=== PATIENT | female | born 1970 | race Caucasian/White ===

== ENCOUNTER 2016-11-29 21:36 | Emergency (ER) | payer BC ==
[2016-11-29 21:54] VITALS: BMI 57.4
--- NOTE | 2016-11-29 23:00 | EDPRACDOC ---
- General Information Chief Complaint: Headache Stated Complaint: HEADACHE NO VOMITING Time Seen by Provider: 11/29/16 22:30 Information Source: Patient Mode Of Arrival: Car Home Medications: Home Medications Ibuprofen 600 mg PO Q6 PRN 10/27/15 Losartan/Hydrochlorothiazide [Losartan-Hctz 100-25 mg Tab] 1 tab PO DAILY Aspirin/Calcium Carbonate/Mag [Aspirin Buffered 325 mg Tab] 650 mg PO QAM Cholecalciferol (Vitamin D3) [Vitamin D3] 5,000 unit PO DAILY 11/29/16 Allergies/Adverse Reactions: Allergies Allergy/AdvReac Type Severity Reaction Status Date / Time No Known Allergies Allergy Verified 10/27/15 00:22 - History of Present Illness Onset: today HPI: PAIN BEHIND RIGHT EAR SHOOTS UP RIGHT SIDE OF HEAD., ASSOCIATED WITH TINGLING OF RIGHT FACE. HAS BEEN GOING ON FOR SEVERAL DAYS, WORSE TODAY. PAIN 9/10. PHOTOPHOBIA RIGHT EYE. PT TOOK ASPIRIN AND MOTRIN TODAY WITHOUT RELIEF. PT DID TAKE HER BLOOD PRESSURE MEDICINE TODAY WELL. ED Past Medical History - Patient Medical History Cardiac History: Reports: Hypertension Respiratory History: Reports: Pneumonia GI/ History: Denies: Urinary Tract Infection Psychological History: Denies: Depression Systemic History: Reports: Anemia (PRIOR TO HYSTERECTOMY). Denies: Cancer Surgical History: Reports: Hysterectomy, Other (HERNIA REPAIR) - Family Medical History Reports: Hypertension (FATHER), Diabetes (GRANDFATHER), Cancer (GRANDMOTHER), Cardiac Disorders (FATHER) - Social Medical History Smoking Status: Never smoker EDM Review of Systems - Review of Systems ROS Negative Except as Marked: Yes All systems reviewed and were negative except as marked Constitutional: No Symptoms Reported Eyes: Other (TROUBLE FOCUSING RIGHT EYE) Ears: No Symptoms Reported, Other (FEELS WEIRD RIGHT EAR) Respiratory: No Symptoms Reported Cardiovascular: No Symptoms Reported Gastrointestinal: Other (HEARTBURN) Neurological: No Symptoms Reported Musculoskeletal: No Symptoms Reported - Physical Exam Constitutional: Alert (Awake), No apparent distress Oriented to: Time, Person, Place Last recorded Vital Signs: Last Vital Signs Temp 98.0 F 11/29/16 21:51 Pulse 101 11/29/16 21:51 Resp 20 11/29/16 21:51 BP 210/93 H 11/29/16 21:51 Pulse Ox 96 11/29/16 21:51 Oxygen Pulse Oxygen Saturation 96 O2 Device Room Air Oxygen Flow Rate Fraction of Inspired Oxygen ( FIO2) - HEENT Head: Normal ( normocephalic), Other (POINT TENDERNESS ON MASTOID BEHIND RIGHT EAR. NO PALPABLE LYMPHADENOPATHY. NO BOGGINESS.) Eye Exam: Normal (PERRL, EOMI, Sclera white) Oropharynx: Normal (Pharynx:Moist without exudate,Gums-no swelling) Tympanic Membrane: Normal ENT EAC: Normal TMJ: Normal Nose: No Symptoms Reported (septum midline) Neck: Normal (FROM, trachea at midline) - Respiratory/Cardiovascular Respiratory: Normal - CTA (BBS clear to auscultation without adventitious sounds ) Cardiovascular: Normal (RRR without murmur, gallop or rub) - GI Auscultation: Normal (NABS) Palpation: Normal (Soft,No rebound or guarding, non distended) Tenderness: Non tender Patterson's Sign: Negative - Musculoskeletal Back: Normal (Non-Tender) Extremities: Normal (Normal tone, Pulses 2+ No cyanosis or edema, FROM) - Integumentary Skin: Normal, Warm, Dry Lymphatics: Normal (no adenopathy) - Neurologic Memory Impaired: Normal Motor Function: Normal (Normal tone, Pulses 2+ No cyanosis or edema, FROM) Cranial Nerve: Normal (CN II-X11 intact sensation, strength 5/5) Cerebellar: Normal Mood Description: Normal Perception: Normal - Results 11/29/16 23:50 11/29/16 23:50 - EKG EKG #1 EKG Time: 23:14 -: Yes EKG interpreted by me Rate: bpm: 94 [place]: Normal Rhythm: NSR Block: None Hypertrophy: None ST: Normal Comments: NORMAL EKG Decision Time to Discharge: 01:22 - Departure Yes I personally saw and evaluated the patient. Disposition: Home Condition: Stable Final Diagnosis: Headache Instructions: Acute Headache (ED) Education/Counseling Given To: Patient Education/Counseling Given Regarding: Diagnosis Referrals: Jocelin Walton MD [Primary Care Provider] - One Week
[2016-11-29] MEDS ORDERED: METOCLOPRAMIDE 10 MG/2 ML VIAL IM ONE (23:05)
[2016-11-29] MEDS ORDERED: DEXAMETHASONE PF 10 MG/1 ML VIAL IM ONE (23:05)
[2016-11-29] MEDS ORDERED: DIPHENHYDRAMINE 50 MG/ML VIAL IM ONE (23:18)
--- NOTE | 2016-11-29 23:27 | DIRPT ---
CLINICAL DATA: 46-year-old female with heartburn EXAM: PORTABLE CHEST 1 VIEW COMPARISON: Chest CT dated 02/18/2015 FINDINGS: The heart size and mediastinal contours are within normal limits. Both lungs are clear. The visualized skeletal structures are unremarkable. IMPRESSION: No active disease. Electronically Signed By: Terrance Jackson M.D. On: 11/29/2016 23:24
[2016-11-30] MEDS ORDERED: DEXAMETHASONE PF 10 MG/1 ML VIAL IV ONE (00:02)
--- NOTE | 2016-11-30 00:32 | DIRPT ---
CLINICAL DATA: Acute onset of right occipital headache, with tingling behind the right ear. Dizziness. Initial encounter. EXAM: CT HEAD WITHOUT CONTRAST TECHNIQUE: Contiguous axial images were obtained from the base of the skull through the vertex without intravenous contrast. COMPARISON: None. FINDINGS: There is no evidence of acute infarction, mass lesion, or intra- or extra-axial hemorrhage on CT. Prominence of the sulci suggests mild cortical volume loss. The posterior fossa, including the cerebellum, brainstem and fourth ventricle, is within normal limits. The third and lateral ventricles, and basal ganglia are unremarkable in appearance. The cerebral hemispheres are symmetric in appearance, with normal rai-white differentiation. No mass effect or midline shift is seen. There is no evidence of fracture; visualized osseous structures are unremarkable in appearance. The orbits are within normal limits. The paranasal sinuses and mastoid air cells are well-aerated. No significant soft tissue abnormalities are seen. IMPRESSION: 1. No acute intracranial pathology seen on CT. 2. Mild cortical volume loss suggested. Electronically Signed By: Hans Longoria M.D. On: 11/30/2016 00:29
[2016-11-30 00:39] LABS: AUTOMATED BASOPHIL 1.4 % (0-2); AUTOMATED EOSINOPHIL 2.6 % (0-5); AUTOMATED LYMPH 35.3 % (17-44); AUTOMATED MONOCYTE 6.3 % (3-10); AUTOMATED NEUTROPHIL 54.4 % (45-76); MPV 9.6 fL (7.4-10.4)
[2016-11-30 00:48] LABS: PARTIAL THROMB. TIME 23.6 SEC (22-35)
[2016-11-30 00:51] LABS: BLOOD UREA NITROGEN 13 MG/DL (7-17); CALCIUM 10.1 MG/DL (8.4-10.2); CALCULATED OSMOLALITY 270 MOs/Kg (270-290); CHLORIDE 100 mEq/L (98-107); GLUCOSE 113 MG/DL (70-99); SODIUM LEVEL 140 mEq/L (137-146); TOTAL PROTEIN 7.9 G/DL (6.3-8.2)
[2016-11-30] MEDS ORDERED: KETOROLAC TROMETH 30 MG/ML VIAL IV ONE (01:04)
[2016-11-30 01:34] VITALS: BP 123/54; PULSE 91; TEMP 98.6
== END 2016-11-30 01:33 | disposition home or self-care (01) ==
LOC: ED 21:36
DX: R51 Headache (principal)
CPT/HCPCS: 36415; 70450; 71010; 80053; 83880; 84484; 85025; 85610; 85730; 93005; 96372; 96374; 96375; 99283; J1100; J1200; J1885; J2765